=== PATIENT | female | born 1990 ===

== ENCOUNTER 2017-11-26 10:00 | Inpatient (IN) | payer OTHER ==
[~2017-11-26] VITALS: Ht 165.1 cm; Wt 3.2 kg
[2017-12-01] MEDS ORDERED: PRENATAL + DHA1 EAC1 PO (06:21)
== END 2017-12-04 13:29 | disposition home or self-care (01) | DRG 766 ==
LOC: O/R 12-01 05:15 → OB/GYN 12-01 05:15
PROVIDERS: Obstetrics & Gynecology
PROC: 4A1HXCZ Monitoring of Products of Conception, Cardiac Rate, External Approach (ICD-10-PCS; 2017-12-01)
PROC: 4A033R1 Measurement of Arterial Saturation, Peripheral, Percutaneous Approach (ICD-10-PCS; 2017-12-01)
PROC: 10D00Z1 Extraction of Products of Conception, Low, Open Approach (ICD-10-PCS; principal; 2017-12-01 07:00)
DX: O34.211 Maternal care for low transverse scar from previous cesarean delivery (principal); Z3A.39 39 weeks gestation of pregnancy; Z37.0 Single live birth